=== PATIENT | female | born 1950 | race Asian ===

== ENCOUNTER 2017-11-08 15:54 | Emergency (ER) | payer OTHER ==
--- NOTE | 2017-11-08 16:18 | EDPHY ---
H & P Stated Complaint: Pt in WC ran over pt's L toes Time Seen by Provider: 11/08/17 16:17 HPI/ROS: HPI: This is a 67-year-old female who presents with Chief Complaint: Pt in WC ran over pt's L toes Location: Left great toe and 2nd toe Quality: Injury Duration: Prior to arrival Signs and Symptoms: No bleeding, no radiation, no numbness, no weakness, no tingling, no incontinence, no decreased range of motion, no swelling, + pain, no fever Timing: Acute Severity: Mild Context: Patient reports that her left 1st and 2nd toe or accidentally run over by a wheelchair. She reports that she felt immediate pain but is slowly decreased. She was wearing shoes at the time. The wheelchair rolled over her toes and did not get stuck on top of them. No history of diabetes mellitus. Denies paresthesias/weakness/decreased range of motion/skin color change. She has tried no [id number] pain medications or applied ice. Modifying Factors: None Comment: ROS: see HPI Constitutional: No fever, no chills, no weight loss Eyes: No blurred vision Respiratory: No shortness of breath, no cough Cardiovascular: No chest pain Gastrointestinal: No nausea, no vomiting no diarrhea Genitourinary: No dysuria Extremities: No myalgias Neurologic: No weakness, no numbness Skin: No rashes Hematologic: No bruising, no bleeding MEDICAL/SURGICAL/SOCIAL HISTORY: Medical history: Hypertension Surgical history: Cholecystectomy, oophorectomy Social history: Employed. CONSTITUTIONAL: Extremely pleasant elderly female, awake and alert, no obvious distress HEENT: Atraumatic and normocephalic. NECK: supple, no midline tenderness, flexion 45 degrees, extension 45 degrees, right and left lateral flexion 45 degrees. No meningismus. Cardiovascular: Normal S1/S2, regular rate, regular rhythm, without murmur rub or gallop. PULMONARY/CHEST: Symmetrical and nontender. no crepitus. Clear to auscultation bilaterally. Good air movement. No accessory muscle usage. ABDOMEN: Soft, nondistended, nontender, no ecchymosis. PELVIC: no pain with rocking; bilateral hips flexion 125 degrees, extension 30 degrees, with no pain internal rotation and no pain external rotation. BACK: No midline tenderness, no paraspinous spasm, deep tendon reflexes 2/2, no pain with straight leg raise, No foot drop. Achilles reflexes are equal bilaterally. Able to walk on heels and toes without difficulty. EXTREMITIES: 2/2 pulses, strength 5/5, left foot 1st and 2nd digit; no erythema /soft tissue swelling/deformity appreciated. DIP/PIP/MCP flexion/extension intact with good light touch sensation. no deformities, no clubbing, no cyanosis or edema. NEUROLOGICAL: no focal neuro deficits. GCS 15. Light touch sensation intact. SKIN: Warm and dry, no erythema. no rash. Good capillary refill. Source: Patient Exam Limitations: No limitations - Personal History Current Tetanus Diphtheria and Acellular Pertussis (TDAP): Yes - Medical/Surgical History Hx Asthma: No Hx Chronic Respiratory Disease: No Hx Diabetes: Yes Hx Cardiac Disease: No Hx Renal Disease: No Hx Cirrhosis: No Hx Alcoholism: No Hx HIV/AIDS: No Hx Splenectomy or Spleen Trauma: No Other PMH: ISAURA, OVARY SURGERY. HTN - Social History Smoking Status: Never smoked Constitutional: Initial Vital Signs Temperature (C) 36.7 C 11/08/17 15:56 Heart Rate 76 11/08/17 15:56 Respiratory Rate 18 11/08/17 15:56 Blood Pressure 180/90 H 11/08/17 15:56 O2 Sat (%) 95 11/08/17 15:56 O2 Delivery Mode Room Air Allergies/Adverse Reactions: No Known Allergies Allergy (Verified 11/08/17 15:59) Home Medications: Medication Instructions Recorded Metformin Dose Unk 07/25/12 Starlix 11/27/13 Lisinopril [Zestril 10 mg (*)] 10 mg PO 11/08/17 Medical Decision Making - Diagnostics Imaging Results: Imaging Impressions Toe X-Ray 11/08/17 16:00 Impression: Negative. ED Course/Re-evaluation: No signs of neurovascular compromise/tenting of skin/compartment syndrome/ extremities and joints examined above and below area of concern and are neurovascularly intact. X-ray my read shows no fracture/dislocation/soft tissue swelling Advised supportive care This patient was seen under the supervision of my secondary supervising physician. I evaluated care for this patient independently. Differential Diagnosis: Differential diagnosis includes but is not limited to contusion, sprain, fracture, nerve injury, nail avulsion. Departure - Departure Disposition: Home, Routine, Self-Care Clinical Impression: Contusion of toe of left foot Qualifiers: Encounter type: initial encounter Toe: great toe Damage to nail status: without damage Qualified Code(s): S90.112A - Contusion of left great toe without damage to nail, initial encounter Condition: Good Instructions: Foot Contusion (ED) Additional Instructions: Take Tylenol 650 mg every 4 hours and/or Ibuprofen 600 mg every 8 hours with food as needed for pain. Apply ice for 30 minutes at a time; 2-3 times per day for the next 1-2 days. The x-rays obtained in the emergency department today demonstrate no evidence of an obvious fracture. Return to the ER immediately if you experience new or worsening pain, discoloration, numbness, tingling, or any other symptoms that concern you. Referrals: [facility],. [Clinic] - As per Instructions
[2017-11-08 17:22] VITALS: BP 194/93
== END 2017-11-08 17:18 | disposition home or self-care (01) ==
DX: S90.112A Contusion of left great toe without damage to nail, initial encounter (principal); I10 Essential (primary) hypertension; E11.9 Type 2 diabetes mellitus without complications; Z79.84 Long term (current) use of oral hypoglycemic drugs; V00.818A Other accident with wheelchair (powered), initial encounter

== ENCOUNTER 2018-08-17 15:11 | Emergency (ER) | payer OTHER ==
[2018-08-17 15:31] VITALS: BP 177/89
--- NOTE | 2018-08-17 16:08 | EDPHY ---
H & P Stated Complaint: L foot injury Time Seen by Provider: 08/17/18 16:00 HPI/ROS: HPI: This is a 68-year-old female who presents with Chief Complaint: Left foot injury Location: Left foot Quality: Injury Duration: Around 9:00 a.m. This morning approximately 7 hr prior to arrival Signs and Symptoms: No bleeding, no radiation, no numbness, no weakness, no tingling, no incontinence, no decreased range of motion, + swelling, + pain, no fever, + bruising Timing: Acute Severity: 12/27 Context: Patient was at work when she accidentally dropped a can of pears onto her left foot primarily her left 2nd toe. She reports that she felt immediate, constant, nonradiating pain. She reports that she continued to work throughout the day but the pain continued to increase in her 2nd left toe. She reports that the pain worsens with weight-bearing and walking for longer periods of time. She has not taking any odta-jaz-myaooct medications but she did apply ice for approximately 30 min directly after the injury. She denies paresthesias , radiation, weakness. Patient does not have to work Thursday or but does have to return on Thursday. Modifying Factors: Ice applied Comment: ROS: A comprehensive 10 system review of systems is otherwise negative aside from elements mentioned in the history of present illness. MEDICAL/SURGICAL/SOCIAL HISTORY: Medical history: DM, hypothyroid, HTN Surgical history: Cholecystectomy, OVARY SURGERY Social history: Employed. Never smoked. CONSTITUTIONAL: Polite and cooperative elderly female, awake and alert , no obvious distress HEENT: Atraumatic and normocephalic. NECK: supple, no midline tenderness Cardiovascular: Normal S1/S2, regular rate, regular rhythm, without murmur rub or gallop. PULMONARY/CHEST: Symmetrical and nontender. Clear to auscultation bilaterally. Good air movement. No accessory muscle usage. ABDOMEN: Soft, nondistended, nontender. EXTREMITIES: 2/2 pulses, strength 5/5, left 2nd toe shows mild ecchymosis and tenderness to palpation at the MTP joint but good range of motion of flexion and extension. Good light touch sensation and good capillary refill. left Ankle: Plantar flexion to 50, dorsiflexion to 20. Foot inversion to 35 degree. No tenderness/swelling Anterior talofibular ligament. No tenderness/ swelling Calcaneofibular ligament, no tenderness/swelling posterior talofibular ligament, no tenderness/swelling posterior inferior tibiofibular ligament. Achilles tendon intact. DIP/PIP/MCP flexion/extension intact with good light touch sensation. no deformities, no clubbing, no cyanosis or edema. NEUROLOGICAL: no focal neuro deficits. GCS 15. Light touch sensation intact. SKIN: Warm and dry, no erythema. no rash. Good capillary refill. Source: Patient Exam Limitations: No limitations - Personal History Current Tetanus/Diphtheria Vaccine: Yes Current Tetanus Diphtheria and Acellular Pertussis (TDAP): Yes - Medical/Surgical History Hx Asthma: No Hx Chronic Respiratory Disease: No Hx Diabetes: Yes Hx Cardiac Disease: No Hx Renal Disease: No Hx Cirrhosis: No Hx Alcoholism: No Hx HIV/AIDS: No Hx Splenectomy or Spleen Trauma: No Other PMH: ISAURA, OVARY SURGERY, DM, hypothyroid. HTN - Social History Smoking Status: Never smoked Constitutional: Initial Vital Signs Temperature (C) 36.8 C 08/17/18 15:29 Heart Rate 91 08/17/18 15:29 Respiratory Rate 16 08/17/18 15:29 Blood Pressure 177/89 H 08/17/18 15:29 O2 Sat (%) 94 08/17/18 15:29 O2 Delivery Mode Room Air Allergies/Adverse Reactions: No Known Allergies Allergy (Verified 08/17/18 15:28) Home Medications: Medication Instructions Recorded Metformin Dose Unk 07/25/12 Starlix 11/27/13 Lisinopril [Zestril 10 mg (*)] 10 mg PO 11/08/17 Levothyroxine 08/17/18 Nateglinide 08/17/18 Medical Decision Making - Diagnostics Imaging Results: Imaging Impressions Foot X-Ray 08/17/18 15:32 Impression: Nothing acute identified. Procedures: Procedure: Splint placement. A left postop shoe was applied. After application of the splint I returned and re-examined the patient. The splint was adequately immobilizing the joint and distal to the splint the patient's circulation and sensation was intact. ED Course/Re-evaluation: Vital signs reviewed and show elevated blood pressure upon arrival. Ice pack applied and left foot x-ray ordered 1625: Foot x-ray my read via PACs shows no acute fracture, dislocation. Suspect soft tissue injury. Given postop shoe per request. Patient already has work off for the next 2 days. No signs of neurovascular compromise/tenting of skin/compartment syndrome/ extremities and joints examined above and below area of concern and are neurovascularly intact. This patient was seen under the supervision of my secondary supervising physician. Discussed this patient with Dr. Hoff. Differential Diagnosis: Differential diagnosis includes but is not limited to contusion, sprain, hematoma, metatarsal fracture, nerve injury. Departure - Departure Disposition: Home, Routine, Self-Care Clinical Impression: Contusion of left foot including toes Qualifiers: Encounter type: initial encounter Qualified Code(s): S90.32XA - Contusion of left foot, initial encounter Condition: Good Instructions: Foot Contusion (ED) Additional Instructions: Wear the postop shoe while out of bed until pain free or seen by Podiatry. Take Tylenol 650 mg every 4 hours and/or Ibuprofen 600 mg every 8 hours with food as needed for pain. Apply ice for 30 minutes at a time; 2-3 times per day for the next 1-2 days. Follow up with Podiatry in 7-10 days if symptoms persist at which time they will evaluate and recommend with you if conservative management versus further imaging is indicated. The x-rays obtained in the emergency department today demonstrate no evidence of an obvious fracture. Sometimes fractures are not obvious on the initial set of x-rays performed in the ED. For this reason, you should have repeat x-rays performed in 7-10 days if you are having any pain exclude the possibility of an occult fracture. Referrals: Tianna Mchugh MD [Primary Care Provider] - As per Instructions Jose Ward MD [Doctor of Podiatric Medicine] - As per Instructions
== END 2018-08-17 16:51 | disposition home or self-care (01) ==
DX: S90.32XA Contusion of left foot, initial encounter (principal); W20.8XXA Other cause of strike by thrown, projected or falling object, initial encounter; Y92.9 Unspecified place or not applicable; Y93.9 Activity, unspecified; Y99.9 Unspecified external cause status
CPT/HCPCS: L4386